=== PATIENT | female | born 1990 | race Caucasian/White ===

== ENCOUNTER 2021-07-08 18:53 | Emergency (ER) | payer OTHER, MEDICAID ==
[~2021-07-08] VITALS: Ht 154.9 cm; Wt 75.0 kg
[2021-07-08] MEDS ORDERED: SODIUM CHLORIDE 0.9% 1,000 ML IV ONE (20:30)
[2021-07-08 22:00] LABS: BASOPHILS % 0.4 % (0.0-2.0); EOSINOPHILS % 0.7 % (0.0-5.0); HEMATOCRIT. 25.3 % (36.0-48.0); HEMOGLOBIN. 7.9 g/dL (12.0-16.0); LYMPHOCYTES % 29.8 % (20.0-50.0); MEAN CORPUSCULAR HEMOGLOBIN 20.6 pg (28.0-32.0); MEAN PLATELET VOLUME 8.5 fl (7.4-10.4); MONOCYTES % 5.5 % (2.0-8.0); NEUTROPHILS % 63.6 % (40.0-76.0); PLATELET 320 x1000/uL (130-400); RED BLOOD CELL COUNT 3.83 mill/uL (4.2-5.4); RED CELL DISTRIBUTION WIDTH 19.1 % (11.6-14.6)
[2021-07-08 22:06] LABS: CHLORIDE 109 mEq/L (98-107)
[2021-07-08 22:37] LABS: PLATELET ESTIMATE NORMAL
[2021-07-08] MEDS ORDERED: AZITHROMYCIN 500MG/250ML 250 ML IV SCH (23:00)
[2021-07-08] MEDS ORDERED: CEFTRIAXONE 1 G PREMIX 50 ML IV NR (23:00)
[2021-07-09 01:11] VITALS: BP 117/81
== END 2021-07-09 01:45 | disposition short-term general hospital (02) ==
LOC: ER 18:53
DX: A41.9 Sepsis, unspecified organism (principal); J18.9 Pneumonia, unspecified organism; R00.0 Tachycardia, unspecified; G80.9 Cerebral palsy, unspecified; Z20.822 Contact with and (suspected) exposure to COVID-19
CPT/HCPCS: 36415; 71045; 80053; 83605; 84145; 85025; 87040; 87086; 93005; 96361; 96365; 96366; 96368; 99291; C9803; J0456; J0696; J7030; U0003; U0005